=== PATIENT | male | born 1970 | race Caucasian/White ===

== ENCOUNTER 2022-11-26 00:05 | Emergency (ER) | payer OTHER, MEDICAID ==
[~2022-11-26] VITALS: Ht 180.3 cm; Wt 70.3 kg
--- NOTE | 2022-11-26 00:15 | NUR ---
Pt BIB BLS ambulance; placed in ED rm 03. Placed on monitor. Arrived to ED in no acute distress.
[2022-11-26 00:17] VITALS: BP 166/104
--- NOTE | 2022-11-26 00:49 | NUR ---
Pt taken to CT for imaging.
--- NOTE | 2022-11-26 01:03 | NUR ---
MD Figueroa at bedside examining pt.
[2022-11-26 01:26] LABS: APPEARANCE,URINE CLEAR (CLEAR); BILIRUBIN,URINE NEGATIVE (NEGATIVE); BLOOD, URINE TRACE-I (NEGATIVE); COLOR,URINE YELLOW (YELLOW); LEUKOCYTE ESTERASE ,URINE NEGATIVE (NEGATIVE); NITRITE, URINE NEGATIVE (NEGATIVE); PH,URINE 6.5 (5.0-9.0); UGLUCOSE NEGATIVE (NEGATIVE)
[2022-11-26 01:39] LABS: WBC,URINE 0-5 /HPF (0-5)
[2022-11-26 02:02] LABS: BASOPHILS # (AUTO) 0.1 K/uL (0.00-0.22); BASOPHILS % (AUTO) 0.5 % (0.0-2.0); EOSINOPHILS # (AUTO) 0.1 K/uL (0-0.4); EOSINOPHILS % (AUTO) 0.9 % (0.0-4.0); HEMOGLOBIN 15.7 g/dL (12.0-18.0); LYMPHOCYTES # (AUTO) 1.6 K/uL (2.0-11.5); MEAN CORPUSCULAR HEMOGLOBIN 29 pg (27-31); MEAN CORPUSCULAR HGB CONC 33 g/dL (33-37); MEAN CORPUSCULAR VOLUME 87.8 fL (80-94); MONOCYTES # (AUTO) 0.8 K/uL (0.8-1.0); MONOCYTES % (AUTO) 6.6 % (1.7-9.3); NEUTROPHILS # (AUTO) 9.4 K/uL (1.8-7.7); PLATELET COUNT (AUTO) 285 K/uL (140-450); RED BLOOD CELL COUNT(AUTO) 5.35 MIL/uL (4.20-6.10); RED CELL DISTRIBUTION WIDTH 14.1 % (11.6-13.7); WHITE BLOOD COUNT (AUTO) 11.9 K/uL (4.8-10.8)
[2022-11-26 02:10] LABS: ALBUMIN 3.7 g/dL (3.4-5.0); CARBON DIOXIDE 30.3 mmol/L (21-32); CREATININE 1.2 mg/dL (0.6-1.3); POTASSIUM 3.3 mmol/L (3.5-5.1); TOTAL BILIRUBIN 0.5 mg/dL (0.0-1.0)
[2022-11-26] MEDS ORDERED: MIRABULK PO (03:49)
[2022-11-26] MEDS ORDERED: POLYETHYLENE GLYCOL 17 GM/PKT PO ONE (03:50)
--- NOTE | 2022-11-26 04:56 | NUR ---
Patient discharged with v/s stable. Written and verbal after care instructions given and explained. Patient verbalized understanding. Ambulatory with steady gait. All questions addressed prior to discharge. Advised to follow up with PMD. Meal offered; pt refused. Pt refused for any housing resources; case management involvement.
[2022-11-26 04:59] VITALS: BP 149/104
== END 2022-11-26 04:56 | disposition home or self-care (01) ==
LOC: MED 00:05
DX: R10.9 Unspecified abdominal pain (principal); K59.00 Constipation, unspecified; I10 Essential (primary) hypertension; E03.9 Hypothyroidism, unspecified; Z79.899 Other long term (current) drug therapy
CPT/HCPCS: 36415; 80053; 81001; 83690; 85025; 99284